=== PATIENT | female | born 1960 | race Caucasian/White ===

== ENCOUNTER → 2019-10-22 | Outpatient (CLI) | payer MEDICARE ==
[2019-10-22 17:44] LABS: BASO % 0.2 % (0.0-1.0); HEMATOCRIT 42.7 % (36.0-47.0); HEMOGLOBIN 13.2 g/dl (12.0-15.5); LYMPH # 1.7 10^3/uL (1.5-5.0); MEAN CORPUSCULAR HEMOGLOBIN 27.2 pg (27.0-33.0); MEAN CORPUSCULAR HGB CONC 30.9 g/dl (32.0-36.5); MONO # 0.2 10^3/uL (0.0-0.8); MONO % 4.1 % (0.0-5.0); NEUTROPHILS # 3.9 10^3/uL (1.5-8.5); NEUTROPHILS % 66.2 % (36.0-66.0); PLATELET COUNT, AUTOMATED 162 10^3/uL (150-450); RED BLOOD COUNT 4.85 10^6/uL (4.00-5.40); WHITE BLOOD COUNT 5.8 10^3/uL (4.0-10.0)
== END ==
LOC: M LAB 17:10
PROVIDERS: ATTEND Psychiatry & Neurology Psychiatry
DX: Z79.899 Other long term (current) drug therapy (principal)

== ENCOUNTER → 2019-11-20 | Outpatient (CLI) | payer MEDICARE ==
[2019-11-20 15:37] LABS: BASO % 0.1 % (0.0-1.0); HEMATOCRIT 45.1 % (36.0-47.0); HEMOGLOBIN 14.2 g/dl (12.0-15.5); LYMPH # 1.9 10^3/uL (1.5-5.0); LYMPH % 28.4 % (24.0-44.0); MEAN CORPUSCULAR HEMOGLOBIN 27.8 pg (27.0-33.0); MEAN CORPUSCULAR HGB CONC 31.5 g/dl (32.0-36.5); MEAN CORPUSCULAR VOLUME 88.3 fl (80.0-96.0); MONO # 0.4 10^3/uL (0.0-0.8); MONO % 5.3 % (0.0-5.0); NEUTROPHILS # 4.5 10^3/uL (1.5-8.5); NEUTROPHILS % 65.9 % (36.0-66.0); PLATELET COUNT, AUTOMATED 158 10^3/uL (150-450); RED BLOOD COUNT 5.11 10^6/uL (4.00-5.40); WHITE BLOOD COUNT 6.8 10^3/uL (4.0-10.0)
== END ==
LOC: M LAB 14:54
PROVIDERS: ATTEND Psychiatry & Neurology Psychiatry
DX: Z79.899 Other long term (current) drug therapy (principal)

== ENCOUNTER → 2019-12-18 | Outpatient (CLI) | payer MEDICAID, MEDICARE ==
[2019-12-18 17:29] LABS: BASO % 0.1 % (0.0-1.0); HEMOGLOBIN 13.9 g/dl (12.0-15.5); LYMPH # 1.9 10^3/uL (1.5-5.0); LYMPH % 28.2 % (24.0-44.0); MEAN CORPUSCULAR HEMOGLOBIN 27.9 pg (27.0-33.0); MEAN CORPUSCULAR HGB CONC 31.6 g/dl (32.0-36.5); MEAN CORPUSCULAR VOLUME 88.4 fl (80.0-96.0); MONO # 0.4 10^3/uL (0.0-0.8); MONO % 5.2 % (0.0-5.0); NEUTROPHILS # 4.5 10^3/uL (1.5-8.5); NEUTROPHILS % 66.1 % (36.0-66.0); PLATELET COUNT, AUTOMATED 184 10^3/uL (150-450); RED BLOOD COUNT 4.98 10^6/uL (4.00-5.40); WHITE BLOOD COUNT 6.8 10^3/uL (4.0-10.0)
== END ==
LOC: M LAB 16:31
PROVIDERS: ATTEND Psychiatry & Neurology Psychiatry
DX: Z51.81 Encounter for therapeutic drug level monitoring (principal); Z79.899 Other long term (current) drug therapy

== ENCOUNTER → 2020-01-25 | Outpatient (CLI) | payer MEDICARE ==
[2020-01-25 17:09] LABS: BASO % 0.1 % (0.0-1.0); HEMATOCRIT 46.1 % (36.0-47.0); HEMOGLOBIN 14.5 g/dl (12.0-15.5); LYMPH # 2.2 10^3/uL (1.5-5.0); LYMPH % 30.2 % (24.0-44.0); MEAN CORPUSCULAR HEMOGLOBIN 27.6 pg (27.0-33.0); MEAN CORPUSCULAR HGB CONC 31.5 g/dl (32.0-36.5); MEAN CORPUSCULAR VOLUME 87.8 fl (80.0-96.0); MONO # 0.4 10^3/uL (0.0-0.8); MONO % 5.3 % (0.0-5.0); NEUTROPHILS # 4.7 10^3/uL (1.5-8.5); PLATELET COUNT, AUTOMATED 190 10^3/uL (150-450); RED BLOOD COUNT 5.25 10^6/uL (4.00-5.40); WHITE BLOOD COUNT 7.3 10^3/uL (4.0-10.0)
== END ==
LOC: M LAB 16:33
PROVIDERS: ATTEND Psychiatry & Neurology Psychiatry
DX: Z79.899 Other long term (current) drug therapy (principal)

== ENCOUNTER → 2020-02-26 | Outpatient (CLI) | payer MEDICARE ==
[2020-02-26 10:53] LABS: BASO % 0.3 % (0.0-1.0); HEMATOCRIT 48.2 % (36.0-47.0); LYMPH # 2.1 10^3/uL (1.5-5.0); LYMPH % 35.6 % (24.0-44.0); MEAN CORPUSCULAR HEMOGLOBIN 27.5 pg (27.0-33.0); MEAN CORPUSCULAR HGB CONC 31.1 g/dl (32.0-36.5); MEAN CORPUSCULAR VOLUME 88.3 fl (80.0-96.0); MONO # 0.3 10^3/uL (0.0-0.8); MONO % 5.5 % (0.0-5.0); NEUTROPHILS # 3.4 10^3/uL (1.5-8.5); NEUTROPHILS % 58.3 % (36.0-66.0); PLATELET COUNT, AUTOMATED 188 10^3/uL (150-450); RED BLOOD COUNT 5.46 10^6/uL (4.00-5.40); WHITE BLOOD COUNT 5.9 10^3/uL (4.0-10.0)
== END ==
LOC: M LAB 09:53
PROVIDERS: ATTEND Psychiatry & Neurology Psychiatry
DX: Z79.899 Other long term (current) drug therapy (principal)

== ENCOUNTER → 2020-03-28 | Outpatient (CLI) | payer MEDICARE ==
[2020-03-28 17:50] LABS: ALBUMIN 3.6 GM/DL (3.2-5.2); ALT/SGPT 26 U/L (12-78); BILIRUBIN,TOTAL 0.4 MG/DL (0.2-1.0); BLOOD UREA NITROGEN 13 MG/DL (7-18); CALCIUM LEVEL 8.8 MG/DL (8.5-10.1); CARBON DIOXIDE LEVEL 26 MEQ/L (21-32); CHLORIDE LEVEL 108 MEQ/L (98-107); CHOLESTEROL LEVEL 186 MG/DL (<200); CHOLESTEROL RISK RATIO 3.444 (<5); CREATININE FOR GFR 0.96 MG/DL (0.55-1.30); FREE T4 0.93 NG/DL (0.76-1.46); GLOMERULAR FILTRATION RATE > 60.0 (>51); GLUCOSE, FASTING 257 MG/DL (70-100); HDL CHOLESTEROL 54 MG/DL (>40); LDL CHOLESTEROL 97 MG/DL (<100); NON-HDL-C 132 MG/DL; POTASSIUM SERUM 3.7 MEQ/L (3.5-5.1); RHEUMATOID FACTOR QUANT < 10.0 IU/ML (<15.0); SODIUM LEVEL 142 MEQ/L (136-145); TOTAL PROTEIN 6.8 GM/DL (6.4-8.2); TRIGLYCERIDES LEVEL 176 MG/DL (<150)
[2020-03-28 17:56] LABS: BASO % 0.2 % (0.0-1.0); HEMATOCRIT 41.4 % (36.0-47.0); LYMPH # 1.8 10^3/uL (1.5-5.0); LYMPH % 29.7 % (24.0-44.0); MEAN CORPUSCULAR HEMOGLOBIN 28.2 pg (27.0-33.0); MEAN CORPUSCULAR HGB CONC 31.4 g/dl (32.0-36.5); MEAN CORPUSCULAR VOLUME 89.8 fl (80.0-96.0); MONO # 0.3 10^3/uL (0.0-0.8); MONO % 4.2 % (0.0-5.0); NEUTROPHILS % 65.6 % (36.0-66.0); PLATELET COUNT, AUTOMATED 159 10^3/uL (150-450); RED BLOOD COUNT 4.61 10^6/uL (4.00-5.40)
[2020-03-30 14:08] LABS: ANTINUCLEAR ANTIBODIES DIRECT Negative (Negative)
== END ==
LOC: M LAB 16:28
PROVIDERS: ATTEND Physician Assistant Medical
DX: R53.83 Other fatigue (principal); I10 Essential (primary) hypertension; E78.2 Mixed hyperlipidemia; M19.90 Unspecified osteoarthritis, unspecified site; Z79.899 Other long term (current) drug therapy

== ENCOUNTER → 2020-03-28 | Outpatient (CLI) | payer MEDICARE ==
[2020-03-28 18:02] LABS: BASO % 0.2 % (0.0-1.0); HEMOGLOBIN 13.4 g/dl (12.0-15.5); LYMPH # 1.9 10^3/uL (1.5-5.0); LYMPH % 30.4 % (24.0-44.0); MEAN CORPUSCULAR HGB CONC 31.2 g/dl (32.0-36.5); MEAN CORPUSCULAR VOLUME 89.8 fl (80.0-96.0); MONO # 0.3 10^3/uL (0.0-0.8); MONO % 4.2 % (0.0-5.0); NEUTROPHILS % 64.7 % (36.0-66.0); PLATELET COUNT, AUTOMATED 178 10^3/uL (150-450); RED BLOOD COUNT 4.79 10^6/uL (4.00-5.40); WHITE BLOOD COUNT 6.2 10^3/uL (4.0-10.0)
== END ==
LOC: M LAB 16:23
PROVIDERS: ATTEND Psychiatry & Neurology Psychiatry
DX: Z79.899 Other long term (current) drug therapy (principal)

== ENCOUNTER → 2020-04-30 | Outpatient (CLI) | payer MEDICARE ==
[2020-04-30 12:12] LABS: BASO % 0.3 % (0.0-1.0); HEMATOCRIT 45.7 % (36.0-47.0); HEMOGLOBIN 13.9 g/dl (12.0-15.5); LYMPH # 1.8 10^3/uL (1.5-5.0); LYMPH % 25.9 % (24.0-44.0); MEAN CORPUSCULAR HEMOGLOBIN 27.1 pg (27.0-33.0); MEAN CORPUSCULAR HGB CONC 30.4 g/dl (32.0-36.5); MEAN CORPUSCULAR VOLUME 89.3 fl (80.0-96.0); MONO # 0.3 10^3/uL (0.0-0.8); MONO % 4.2 % (0.0-5.0); NEUTROPHILS # 4.9 10^3/uL (1.5-8.5); NEUTROPHILS % 68.8 % (36.0-66.0); PLATELET COUNT, AUTOMATED 188 10^3/uL (150-450); RED BLOOD COUNT 5.12 10^6/uL (4.00-5.40); WHITE BLOOD COUNT 7.1 10^3/uL (4.0-10.0)
== END ==
LOC: M LAB 11:47
PROVIDERS: ATTEND Psychiatry & Neurology Psychiatry
DX: Z51.81 Encounter for therapeutic drug level monitoring (principal); Z79.899 Other long term (current) drug therapy

== ENCOUNTER → 2020-05-31 | Outpatient (CLI) | payer MEDICARE ==
[2020-05-31 15:13] LABS: BASO % 0.3 % (0.0-1.0); HEMOGLOBIN 13.6 g/dl (12.0-15.5); LYMPH # 1.8 10^3/uL (1.5-5.0); LYMPH % 27.5 % (24.0-44.0); MEAN CORPUSCULAR HEMOGLOBIN 27.4 pg (27.0-33.0); MEAN CORPUSCULAR HGB CONC 30.9 g/dl (32.0-36.5); MEAN CORPUSCULAR VOLUME 88.7 fl (80.0-96.0); MONO # 0.3 10^3/uL (0.0-0.8); MONO % 5.2 % (0.0-5.0); NEUTROPHILS # 4.4 10^3/uL (1.5-8.5); NEUTROPHILS % 66.5 % (36.0-66.0); PLATELET COUNT, AUTOMATED 194 10^3/uL (150-450); RED BLOOD COUNT 4.96 10^6/uL (4.00-5.40); WHITE BLOOD COUNT 6.6 10^3/uL (4.0-10.0)
== END ==
LOC: M LAB 14:00
PROVIDERS: ATTEND Psychiatry & Neurology Psychiatry
DX: Z51.81 Encounter for therapeutic drug level monitoring (principal); Z79.899 Other long term (current) drug therapy

== ENCOUNTER → 2020-06-27 | Outpatient (CLI) | payer MEDICARE ==
[2020-06-27 14:22] LABS: BASO % 0.3 % (0.0-1.0); HEMATOCRIT 43.1 % (36.0-47.0); HEMOGLOBIN 13.3 g/dl (12.0-15.5); LYMPH # 1.8 10^3/uL (1.5-5.0); LYMPH % 23.9 % (24.0-44.0); MEAN CORPUSCULAR HGB CONC 30.9 g/dl (32.0-36.5); MEAN CORPUSCULAR VOLUME 87.4 fl (80.0-96.0); MONO # 0.4 10^3/uL (0.0-0.8); MONO % 5.3 % (0.0-5.0); NEUTROPHILS # 5.3 10^3/uL (1.5-8.5); NEUTROPHILS % 70.1 % (36.0-66.0); PLATELET COUNT, AUTOMATED 180 10^3/uL (150-450); RED BLOOD COUNT 4.93 10^6/uL (4.00-5.40); WHITE BLOOD COUNT 7.6 10^3/uL (4.0-10.0)
== END ==
LOC: M LAB 13:33
PROVIDERS: ATTEND Psychiatry & Neurology Psychiatry
DX: Z51.81 Encounter for therapeutic drug level monitoring (principal); Z79.899 Other long term (current) drug therapy

== ENCOUNTER → 2020-07-30 | Outpatient (CLI) | payer MEDICARE ==
[2020-07-30 12:26] LABS: BASO % 0.3 % (0.0-1.0); HEMATOCRIT 44.6 % (36.0-47.0); HEMOGLOBIN 13.5 g/dl (12.0-15.5); LYMPH # 1.7 10^3/uL (1.5-5.0); LYMPH % 29.2 % (24.0-44.0); MEAN CORPUSCULAR HEMOGLOBIN 26.8 pg (27.0-33.0); MEAN CORPUSCULAR HGB CONC 30.3 g/dl (32.0-36.5); MEAN CORPUSCULAR VOLUME 88.5 fl (80.0-96.0); MONO # 0.3 10^3/uL (0.0-0.8); MONO % 4.6 % (0.0-5.0); NEUTROPHILS # 3.9 10^3/uL (1.5-8.5); NEUTROPHILS % 65.6 % (36.0-66.0); PLATELET COUNT, AUTOMATED 171 10^3/uL (150-450); RED BLOOD COUNT 5.04 10^6/uL (4.00-5.40); WHITE BLOOD COUNT 5.9 10^3/uL (4.0-10.0)
== END ==
LOC: M LAB 11:39
PROVIDERS: ATTEND Psychiatry & Neurology Psychiatry
DX: Z79.899 Other long term (current) drug therapy (principal)

== ENCOUNTER → 2020-08-27 | Outpatient (CLI) | payer MEDICARE ==
[2020-08-27 12:23] LABS: BASO % 0.1 % (0.0-1.0); HEMATOCRIT 45.1 % (36.0-47.0); HEMOGLOBIN 14.1 g/dl (12.0-15.5); LYMPH # 2.2 10^3/uL (1.5-5.0); LYMPH % 26.1 % (24.0-44.0); MEAN CORPUSCULAR HEMOGLOBIN 27.8 pg (27.0-33.0); MEAN CORPUSCULAR HGB CONC 31.3 g/dl (32.0-36.5); MONO # 0.3 10^3/uL (0.0-0.8); MONO % 4.1 % (2.0-8.0); NEUTROPHILS # 5.8 10^3/uL (1.5-8.5); NEUTROPHILS % 69.2 % (36.0-66.0); PLATELET COUNT, AUTOMATED 192 10^3/uL (150-450); RED BLOOD COUNT 5.07 10^6/uL (4.00-5.40); WHITE BLOOD COUNT 8.3 10^3/uL (4.0-10.0)
== END ==
LOC: M LAB 11:26
PROVIDERS: ATTEND Psychiatry & Neurology Psychiatry
DX: Z51.81 Encounter for therapeutic drug level monitoring (principal); Z79.899 Other long term (current) drug therapy

== ENCOUNTER → 2020-09-23 | Outpatient (CLI) | payer MEDICARE ==
[2020-09-23 17:23] LABS: BASO % 0.3 % (0.0-1.0); HEMATOCRIT 44.4 % (36.0-47.0); HEMOGLOBIN 13.9 g/dl (12.0-15.5); LYMPH # 1.8 10^3/uL (1.5-5.0); MEAN CORPUSCULAR HEMOGLOBIN 27.6 pg (27.0-33.0); MEAN CORPUSCULAR HGB CONC 31.3 g/dl (32.0-36.5); MEAN CORPUSCULAR VOLUME 88.3 fl (80.0-96.0); MONO # 0.4 10^3/uL (0.0-0.8); MONO % 5.9 % (2.0-8.0); NEUTROPHILS # 5.1 10^3/uL (1.5-8.5); NEUTROPHILS % 69.4 % (36.0-66.0); PLATELET COUNT, AUTOMATED 195 10^3/uL (150-450); RED BLOOD COUNT 5.03 10^6/uL (4.00-5.40); WHITE BLOOD COUNT 7.3 10^3/uL (4.0-10.0)
== END ==
LOC: M LAB 16:27
PROVIDERS: ATTEND Psychiatry & Neurology Psychiatry
DX: Z79.899 Other long term (current) drug therapy (principal)

== ENCOUNTER → 2020-10-26 | Outpatient (CLI) | payer MEDICARE ==
[2020-10-26 13:13] LABS: BASO % 0.1 % (0.0-1.0); HEMATOCRIT 45.2 % (36.0-47.0); LYMPH # 1.9 10^3/uL (1.5-5.0); LYMPH % 22.7 % (24.0-44.0); MEAN CORPUSCULAR HEMOGLOBIN 27.3 pg (27.0-33.0); MEAN CORPUSCULAR VOLUME 88.1 fl (80.0-96.0); MONO # 0.4 10^3/uL (0.0-0.8); NEUTROPHILS # 5.8 10^3/uL (1.5-8.5); NEUTROPHILS % 71.3 % (36.0-66.0); PLATELET COUNT, AUTOMATED 210 10^3/uL (150-450); RED BLOOD COUNT 5.13 10^6/uL (4.00-5.40); WHITE BLOOD COUNT 8.1 10^3/uL (4.0-10.0)
[2020-10-26 13:40] LABS: HEMOGLOBIN A1c 5.6 %
[2020-10-26 13:48] LABS: ALBUMIN 4.1 GM/DL (3.2-5.2); ALT/SGPT 20 U/L (12-78); BILIRUBIN,TOTAL 0.3 MG/DL (0.2-1.0); BLOOD UREA NITROGEN 15 MG/DL (7-18); CALCIUM LEVEL 9.6 MG/DL (8.5-10.1); CARBON DIOXIDE LEVEL 31 MEQ/L (21-32); CHLORIDE LEVEL 103 MEQ/L (98-107); CHOLESTEROL LEVEL 229 MG/DL (<200); CHOLESTEROL RISK RATIO 3.754 (<5); CREATININE FOR GFR 0.73 MG/DL (0.55-1.30); GLOMERULAR FILTRATION RATE > 60.0 (>51); GLUCOSE, FASTING 154 MG/DL (70-100); HDL CHOLESTEROL 61 MG/DL (>40); LDL CHOLESTEROL 140 MG/DL (<100); NON-HDL-C 168 MG/DL; POTASSIUM SERUM 3.9 MEQ/L (3.5-5.1); SODIUM LEVEL 140 MEQ/L (136-145); TOTAL PROTEIN 7.3 GM/DL (6.4-8.2); TRIGLYCERIDES LEVEL 140 MG/DL (<150)
== END ==
LOC: M LAB 11:17
PROVIDERS: ATTEND Physician Assistant Medical
DX: R53.83 Other fatigue (principal); I10 Essential (primary) hypertension; E78.2 Mixed hyperlipidemia; E11.9 Type 2 diabetes mellitus without complications

== ENCOUNTER → 2020-10-26 | Outpatient (CLI) | payer MEDICARE ==
[2020-10-26 13:18] LABS: BASO % 0.1 % (0.0-1.0); HEMATOCRIT 45.2 % (36.0-47.0); LYMPH # 1.9 10^3/uL (1.5-5.0); LYMPH % 22.8 % (24.0-44.0); MEAN CORPUSCULAR HEMOGLOBIN 27.5 pg (27.0-33.0); MEAN CORPUSCULAR VOLUME 88.6 fl (80.0-96.0); MONO # 0.4 10^3/uL (0.0-0.8); MONO % 4.6 % (2.0-8.0); NEUTROPHILS # 5.8 10^3/uL (1.5-8.5); NEUTROPHILS % 71.8 % (36.0-66.0); PLATELET COUNT, AUTOMATED 203 10^3/uL (150-450); WHITE BLOOD COUNT 8.1 10^3/uL (4.0-10.0)
== END ==
LOC: M LAB 11:20
PROVIDERS: ATTEND Psychiatry & Neurology Psychiatry
DX: Z79.899 Other long term (current) drug therapy (principal)

== ENCOUNTER → 2020-11-26 | Outpatient (CLI) | payer MEDICARE ==
[2020-11-26 16:02] LABS: BASO % 0.1 % (0.0-1.0); HEMATOCRIT 43.7 % (36.0-47.0); HEMOGLOBIN 13.6 g/dl (12.0-15.5); LYMPH % 28.2 % (24.0-44.0); MEAN CORPUSCULAR HEMOGLOBIN 27.6 pg (27.0-33.0); MEAN CORPUSCULAR HGB CONC 31.1 g/dl (32.0-36.5); MEAN CORPUSCULAR VOLUME 88.6 fl (80.0-96.0); MONO # 0.3 10^3/uL (0.0-0.8); MONO % 4.1 % (2.0-8.0); NEUTROPHILS # 4.8 10^3/uL (1.5-8.5); PLATELET COUNT, AUTOMATED 189 10^3/uL (150-450); RED BLOOD COUNT 4.93 10^6/uL (4.00-5.40); WHITE BLOOD COUNT 7.1 10^3/uL (4.0-10.0)
== END ==
LOC: M LAB 12:01
PROVIDERS: ATTEND Psychiatry & Neurology Psychiatry
DX: Z51.81 Encounter for therapeutic drug level monitoring (principal); Z79.899 Other long term (current) drug therapy

== ENCOUNTER → 2020-12-29 | Outpatient (CLI) | payer MEDICARE ==
[2020-12-29 12:08] LABS: BASO % 0.2 % (0.0-1.0); HEMATOCRIT 43.6 % (36.0-47.0); HEMOGLOBIN 13.5 g/dl (12.0-15.5); LYMPH # 1.8 10^3/uL (1.5-5.0); MEAN CORPUSCULAR HEMOGLOBIN 27.5 pg (27.0-33.0); MEAN CORPUSCULAR VOLUME 88.8 fl (80.0-96.0); MONO # 0.4 10^3/uL (0.0-0.8); MONO % 4.9 % (2.0-8.0); NEUTROPHILS % 72.4 % (36.0-66.0); PLATELET COUNT, AUTOMATED 199 10^3/uL (150-450); RED BLOOD COUNT 4.91 10^6/uL (4.00-5.40); WHITE BLOOD COUNT 8.2 10^3/uL (4.0-10.0)
== END ==
LOC: M LAB 11:14
PROVIDERS: ATTEND Psychiatry & Neurology Psychiatry
DX: Z51.81 Encounter for therapeutic drug level monitoring (principal); Z79.899 Other long term (current) drug therapy

== ENCOUNTER → 2021-08-25 | Outpatient (CLI) | payer MEDICARE | LOC: M RAD 12:23 | PROVIDERS: ATTEND Internal Medicine Pulmonary Disease | DX: R91.8 Other nonspecific abnormal finding of lung field (principal); J43.9 Emphysema, unspecified ==

== ENCOUNTER → 2021-09-29 | Outpatient (CLI) | payer MEDICARE | LOC: M WHC 10:16 | PROVIDERS: ATTEND Physician Assistant | DX: Z12.31 Encounter for screening mammogram for malignant neoplasm of breast (principal); R92.2 Inconclusive mammogram ==

== ENCOUNTER → 2021-10-11 | Outpatient (CLI) | payer MEDICARE | LOC: M WHC 14:38 | PROVIDERS: ATTEND Physician Assistant | DX: N64.89 Other specified disorders of breast (principal) | CPT/HCPCS: 76642; 77065; G0279 ==

== ENCOUNTER → 2021-11-13 | Outpatient (CLI) | payer MEDICARE ==
[~2021-11-13] MED LIST: ALBU83IN; APAP325T4 PO; ATIV1TAB7; CLOZ100T2 PO; CLOZ200T PO; FISH1000 PO; GABA-282; LEXA1TAB2; LINZ145C; LOVA40TA; TREL1AER
== END ==
LOC: M LABSMTC 10:00
PROVIDERS: ATTEND Anesthesiology
DX: Z01.812 Encounter for preprocedural laboratory examination (principal); Z20.822 Contact with and (suspected) exposure to COVID-19

== ENCOUNTER 2021-11-17 09:17 | Day surgery (SDC) | payer MEDICARE ==
[~2021-11-17] VITALS: Ht 167.6 cm; Wt 78.8 kg
[~2021-11-17 09:17] MED LIST changes: +NS 1,000 ML IV ONE
[2021-11-17 11:33] VITALS: BP 103/61
[2021-11-17] MEDS ORDERED: propofoL 200 MG/20 ML VIAL As Ordered ONE (11:52)
[2021-11-17] MEDS ORDERED: LIDOCAINE 2% 100MG/5ML SDV (FOR ANES.) As Ordered ONE (11:52)
== END 2021-11-17 11:33 | disposition home or self-care (01) ==
LOC: M OPP 09:17
PROVIDERS: ATTEND Internal Medicine Gastroenterology
DX: Z12.11 Encounter for screening for malignant neoplasm of colon (principal); Z86.010 Personal history of colon polyps; K63.5 Polyp of colon; K62.1 Rectal polyp; K64.8 Other hemorrhoids; Z79.02 Long term (current) use of antithrombotics/antiplatelets; Z79.899 Other long term (current) drug therapy; Z88.8 Allergy status to other drugs, medicaments and biological substances; Z87.891 Personal history of nicotine dependence; Z80.3 Family history of malignant neoplasm of breast; Z80.1 Family history of malignant neoplasm of trachea, bronchus and lung

== ENCOUNTER → 2022-01-09 | Outpatient (CLI) | payer MEDICARE ==
[~2022-01-09] MED LIST changes: +ALBU2.5V10; -ALBU83IN; -NS 1,000 ML IV ONE
== END ==
LOC: M LABSMTC 09:42
PROVIDERS: ATTEND Anesthesiology
DX: Z01.812 Encounter for preprocedural laboratory examination (principal); Z20.822 Contact with and (suspected) exposure to COVID-19

== ENCOUNTER 2022-01-12 06:46 | Day surgery (SDC) | payer MEDICARE ==
[~2022-01-12] VITALS: Ht 167.6 cm; Wt 80.3 kg
[~2022-01-12 06:46] MED LIST changes: +NS 1,000 ML IV ONE
[2022-01-12] MEDS ORDERED: propofoL 200 MG/20 ML VIAL As Ordered ONE (07:06)
[2022-01-12] MEDS ORDERED: LIDOCAINE 2% INJ 100 MG/5 ML SYRINGE As Ordered ONE (07:07)
[2022-01-12] MEDS ORDERED: PHENYLephrine 500MCG 5ML (100MCG/ML) SYRINGE As Ordered ONE (07:47)
[2022-01-12 08:30] VITALS: BP 154/71
== END 2022-01-12 08:44 | disposition home or self-care (01) ==
LOC: M OPP 06:46
PROVIDERS: ATTEND Internal Medicine Gastroenterology
DX: C44.520 Squamous cell carcinoma of anal skin (principal); K64.8 Other hemorrhoids; Z79.02 Long term (current) use of antithrombotics/antiplatelets; Z79.52 Long term (current) use of systemic steroids; Z79.899 Other long term (current) drug therapy; Z99.81 Dependence on supplemental oxygen; Z88.8 Allergy status to other drugs, medicaments and biological substances
CPT/HCPCS: 45346; 88305; J2370

== ENCOUNTER → 2022-01-19 | Outpatient (CLI) | payer MEDICARE ==
[~2022-01-19] MED LIST changes: +MULTTAB13 PO; -NS 1,000 ML IV ONE
== END ==
LOC: M ONCR 12:57
PROVIDERS: ATTEND General Practice
DX: C21.0 Malignant neoplasm of anus, unspecified (principal); K52.9 Noninfective gastroenteritis and colitis, unspecified; Z80.3 Family history of malignant neoplasm of breast; Z80.1 Family history of malignant neoplasm of trachea, bronchus and lung; Z88.8 Allergy status to other drugs, medicaments and biological substances; Z79.51 Long term (current) use of inhaled steroids; Z79.899 Other long term (current) drug therapy; Z87.891 Personal history of nicotine dependence

== ENCOUNTER 2022-01-24 13:55 | Outpatient (RCR) | payer MEDICARE | END 2022-02-04 | LOC: M ONCR 13:55 | PROVIDERS: ATTEND General Practice | DX: C21.0 Malignant neoplasm of anus, unspecified (principal) ==

== ENCOUNTER → 2022-01-31 | Outpatient (CLI) | payer MEDICARE ==
[~2022-01-31] MED LIST changes: +GASTROGRAFIN SOLUTION 30ML (Q9963) As Ordered ONE; +ISOVUE-370 76% 100ML VIAL As Ordered ONE
== END ==
LOC: M RAD 10:12
PROVIDERS: ATTEND Specialist
DX: C21.8 Malignant neoplasm of overlapping sites of rectum, anus and anal canal (principal); J43.9 Emphysema, unspecified; I70.0 Atherosclerosis of aorta; I25.10 Atherosclerotic heart disease of native coronary artery without angina pectoris; J47.9 Bronchiectasis, uncomplicated; N28.1 Cyst of kidney, acquired; M51.36 Other intervertebral disc degeneration, lumbar region; K44.9 Diaphragmatic hernia without obstruction or gangrene; Z90.49 Acquired absence of other specified parts of digestive tract; R91.8 Other nonspecific abnormal finding of lung field
CPT/HCPCS: 71260; 74177; Q9963; Q9967

== ENCOUNTER → 2022-02-05 | Outpatient (CLI) | payer MEDICARE ==
[~2022-02-05] MED LIST changes: +DICL20GE TP; -GASTROGRAFIN SOLUTION 30ML (Q9963) As Ordered ONE; -ISOVUE-370 76% 100ML VIAL As Ordered ONE
== END ==
LOC: M SOG 14:10
PROVIDERS: ATTEND Orthopaedic Surgery
DX: Z47.89 Encounter for other orthopedic aftercare (principal); M79.604 Pain in right leg

== ENCOUNTER → 2022-02-14 | Outpatient (CLI) | payer MEDICARE | LOC: M LABSMTC 10:01 | PROVIDERS: ATTEND Anesthesiology | DX: Z11.52 Encounter for screening for COVID-19 (principal) ==

== ENCOUNTER → 2022-02-19 | Outpatient (CLI) | payer MEDICARE ==
[~2022-02-19] MED LIST changes: +ACETAMINOPHEN 325 MG TAB As Ordered ONE; +ACETAMINOPHEN TAB 650MG DOSE (2X325MG) PO ONE; +LIDOCAINE 1% MDV 20ML VIAL As Ordered ONE; +MIDAZOLAM INJ 2MG/2ML VIAL (J2250 PER 1MG) As Ordered ONE; +NS 1,000 ML IV SCH; +ONDA-84 PO; +PROC10TA5 PO; +ceFAZolin 2 GM/D5W 50 ML IV BAG (J0690 PER 500MG) As Ordered ONE; +ceFAZolin SOD 2 GM in IV 1 EA IV ONE; +fentaNYL 100 MCG/2 ML INJECTION As Ordered ONE
[2022-02-19 17:15] VITALS: BP 162/82
== END ==
LOC: M IRPRO 11:15
PROVIDERS: ATTEND Specialist
DX: C21.1 Malignant neoplasm of anal canal (principal)
CPT/HCPCS: 36561; 99152; 99153; C1769; C1788; C1887; C1894; J0690; J1642; J1644; J2250; J3010

== ENCOUNTER → 2022-03-07 | Outpatient (RCR) | payer MEDICARE ==
[~2022-03-07] MED LIST changes: -ACETAMINOPHEN 325 MG TAB As Ordered ONE; -ACETAMINOPHEN TAB 650MG DOSE (2X325MG) PO ONE; -LIDOCAINE 1% MDV 20ML VIAL As Ordered ONE; -MIDAZOLAM INJ 2MG/2ML VIAL (J2250 PER 1MG) As Ordered ONE; -NS 1,000 ML IV SCH; -ceFAZolin 2 GM/D5W 50 ML IV BAG (J0690 PER 500MG) As Ordered ONE; -ceFAZolin SOD 2 GM in IV 1 EA IV ONE; -fentaNYL 100 MCG/2 ML INJECTION As Ordered ONE
== END ==
LOC: M ONCR 02-05 11:00
PROVIDERS: ATTEND General Practice
DX: C21.0 Malignant neoplasm of anus, unspecified (principal)

== ENCOUNTER → 2022-03-13 | Outpatient (POV) | payer MEDICARE ==
[~2022-03-13] VITALS: Ht 170.2 cm; Wt 78.6 kg
[~2022-03-13] MED LIST changes: +HYDR25OI TOP; +LACT20EL PO
[2022-03-13 10:45] VITALS: BP 121/73
== END ==
LOC: M IRPOV 10:35
PROVIDERS: ATTEND Radiology Diagnostic Radiology
DX: Z45.2 Encounter for adjustment and management of vascular access device (principal); Z88.8 Allergy status to other drugs, medicaments and biological substances

== ENCOUNTER 2022-03-29 14:13 | Outpatient (RCR) | payer MEDICARE ==
[~2022-03-29 14:13] MED LIST changes: -ALBU2.5V10; +ALBU2.5V10 PO; -ATIV1TAB7; +ATIV1TAB7 PO; -LEXA1TAB2; +LEXA1TAB2 PO; +LIDO5CRE6 TOP; -LINZ145C; +LINZ145C PO; -LOVA40TA; +LOVA40TA PO; +OXYC-517 PO; +POTA-151 PO; -TREL1AER; +TREL1AER PO
[2022-03-30] MEDS ORDERED: MAGICMW SSP (14:19)
[2022-03-30] MEDS ORDERED: LIDO2SOL17 PO (16:21)
[2022-03-30] MEDS ORDERED: [UNRECOGNIZED DRUG - CODE] PO (19:46)
[2022-03-30] MEDS ORDERED: ALBU8.5H PO (19:46)
[2022-03-30] MEDS ORDERED: DOK100TA2 PO ×2 (19:46)
[2022-03-30] MEDS ORDERED: HYDR25OI TOP (19:46)
== END 2022-04-06 ==
LOC: M ONCR 14:13
PROVIDERS: ATTEND General Practice
DX: C21.0 Malignant neoplasm of anus, unspecified (principal); R05.9 Cough, unspecified; R68.83 Chills (without fever)

== ENCOUNTER 2022-03-30 16:24 | Inpatient (IN) | payer MEDICARE ==
[~2022-03-30] VITALS: Ht 167.6 cm; Wt 74.0 kg
[~2022-03-30 16:24] MED LIST changes: -CLOZ100T2 PO; +CLOZ100T5 PO; -CLOZ200T PO; +CLOZ200T4 PO; +LIDO2SOL17 PO; +MAGICMW SSP
[2022-03-30] MEDS ORDERED: SODIUM CHLORIDE 0.9% INJ 10 ML SYR IV PRN (16:55)
[2022-03-30] MEDS ORDERED: POTASSIUM CHLORIDE 10MEQ SR TABLET PO ONE (18:10)
[2022-03-30] MEDS ORDERED: IBUPROFEN 600MG TAB PO ONE (18:10)
[2022-03-30 18:38] LABS: APPEARANCE, URINE MANUAL HAZY (CLEAR); BILIRUBIN, URINE MANUAL NEGATIVE (NEGATIVE); COLOR, URINE MANUAL YELLOW (YELLOW); GLUCOSE, URINE (UA) MANUAL NEGATIVE (NEGATIVE); KETONE, URINE MANUAL NEGATIVE (NEGATIVE); PROTEIN, URINE MANUAL 1+ mg/dL (NEGATIVE); UROBILINOGEN, URINE MANUAL NORMAL (NORMAL)
[2022-03-30 18:39] LABS: BLOOD URINE MANUAL TRACE (NEGATIVE); LEUKOCYTE ESTERASE, URINE MAN POSITIVE (NEGATIVE); NITRITE, URINE MANUAL NEGATIVE (NEGATIVE)
[2022-03-30 19:04] LABS: SQUAMOUS EPITHELIAL CELL URINE SMALL AMOUNT /hpf (SMALL AMT); WBC, URINE TNTC /hpf (0-3)
[2022-03-30 19:06] LABS: BACTERIA, URINE SMALL AMOUNT
[2022-03-30 19:07] LABS: AMORPHOUS SEDIMENT, URINE SMALL AMOUNT (NEGATIVE); MUCUS, URINE MOD AMOUNT (NEGATIVE)
[2022-03-30] MEDS ORDERED: CEFEPIME HCL 2 GM in D5W MINI-BAG PLUS 50 ML IV ONE (19:10)
[2022-03-30] MEDS ORDERED: DOK100TA2 PO ×2 (19:46)
[2022-03-30] MEDS ORDERED: [UNRECOGNIZED DRUG - CODE] PO (19:46)
[2022-03-30] MEDS ORDERED: ALBU8.5H PO (19:46)
[2022-03-30] MEDS ORDERED: HYDR25OI TOP (19:46)
[2022-03-30] MEDS ORDERED: HOME MED LIST COMPLETE! XX SCH (19:50)
[2022-03-30 20:04] LABS: HEMATOCRIT 30.9 % (36.0-47.0); HEMOGLOBIN 9.7 g/dl (12.0-15.5); LYMPH # 0.1 10^3/uL (1.5-5.0); LYMPH % 3.9 % (24.0-44.0); MEAN CORPUSCULAR HEMOGLOBIN 27.9 pg (27.0-33.0); MEAN CORPUSCULAR HGB CONC 31.4 g/dl (32.0-36.5); MEAN CORPUSCULAR VOLUME 88.8 fl (80.0-96.0); MONO % 0.8 % (2.0-8.0); NEUTROPHILS # 2.4 10^3/uL (1.5-8.5); NEUTROPHILS % 93.7 % (36.0-66.0); RED BLOOD COUNT 3.48 10^6/uL (4.00-5.40); WHITE BLOOD COUNT 2.5 10^3/uL (4.0-10.0)
[2022-03-30 20:11] LABS: PLATELET COUNT, AUTOMATED 63 10^3/uL (150-450)
[2022-03-30 20:49] LABS: ALBUMIN 2.5 GM/DL (3.2-5.2); ALT/SGPT 22 U/L (12-78); BILIRUBIN,TOTAL 0.4 MG/DL (0.2-1.0); BLOOD UREA NITROGEN 12 MG/DL (7-18); CALCIUM LEVEL 7.9 MG/DL (8.8-10.2); CARBON DIOXIDE LEVEL 31 MEQ/L (21-32); CHLORIDE LEVEL 106 MEQ/L (98-107); CREATININE FOR GFR 0.55 MG/DL (0.55-1.30); GLOMERULAR FILTRATION RATE > 60.0 (>45); GLUCOSE, FASTING 112 MG/DL (70-100); POTASSIUM SERUM 3.4 MEQ/L (3.5-5.1); SODIUM LEVEL 140 MEQ/L (136-145); TOTAL PROTEIN 5.3 GM/DL (6.4-8.2)
[2022-03-30] MEDS ORDERED: PROCHLORPERAZINE 5MG TAB PO PRN (21:50)
[2022-03-30] MEDS ORDERED: LACTULOSE 20 GM/30 ML SYRUP UD PO PRN (21:50)
[2022-03-30] MEDS ORDERED: ONDANSETRON 4MG TAB PO PRN (21:50)
[2022-03-30] MEDS ORDERED: LORazepam 1 MG TAB PO PRN (21:50)
[2022-03-30] MEDS ORDERED: LIDOCAINE 5% OINT 30GM TUBE TOP PRN (21:50)
[2022-03-30] MEDS ORDERED: ALBUTEROL 90 MCG/ACT 8GM HFA INHALER INH PRN (21:50)
[2022-03-30 22:18] LABS: INR 0.95; PROTHROMBIN TIME 13.1 SECONDS (12.7-14.5)
[2022-03-30 22:23] LABS: D-DIMER QUANT 2678.48 ng/ml (<500)
[2022-03-30 22:56] LABS: C REACTIVE PROTEIN QUANTITATIV 8.72 MG/DL (0.00-0.30); FERRITIN 897 NG/ML (8-252); LDH LACTATE DEHYDROGENASE 199 U/L (84-246)
[2022-03-30] MEDS: AZITHROMYCIN INJ 500 MG, VIAL MATE ADAPTER 1 EACH in NS 250 ML IV SCH (23:08)
[2022-03-31] MEDS ORDERED: UNRESOLVED CLARIFICATION ENTRY XX SCH (00:01)
[2022-03-31] MEDS ORDERED: REMDESIVIR 200 MG in NS 250 ML IV ONE (02:00)
[2022-03-31] MEDS ORDERED: SODIUM CHLORIDE 0.9% INJ 10 ML SYR IV ONE (04:00)
[2022-03-31] MEDS: CEFEPIME HCL 2 GM in D5W MINI-BAG PLUS 50 ML IV SCH ×3 (04:13→20:07)
[2022-03-31] MEDS ORDERED: VANCOMYCIN HCL 750 MG, VIAL MATE ADAPTER 1 EACH in D5W 250 ML IV ONE ×6 (06:00)
[2022-03-31] MEDS ORDERED: NS 1,000 ML IV SCH (07:05)
[2022-03-31 07:15] LABS: HEMATOCRIT 28.1 % (36.0-47.0); HEMOGLOBIN 8.8 g/dl (12.0-15.5); MEAN CORPUSCULAR HEMOGLOBIN 28.4 pg (27.0-33.0); MEAN CORPUSCULAR HGB CONC 31.3 g/dl (32.0-36.5); MEAN CORPUSCULAR VOLUME 90.6 fl (80.0-96.0); WHITE BLOOD COUNT 1.3 10^3/uL (4.0-10.0)
[2022-03-31 07:19] LABS: PLATELET COUNT, AUTOMATED 49 10^3/uL (150-450)
[2022-03-31 08:43] LABS: ALT/SGPT 18 U/L (12-78); BILIRUBIN,TOTAL 0.2 MG/DL (0.2-1.0); BLOOD UREA NITROGEN 8 MG/DL (7-18); CALCIUM LEVEL 6.7 MG/DL (8.8-10.2); CARBON DIOXIDE LEVEL 26 MEQ/L (21-32); CHLORIDE LEVEL 112 MEQ/L (98-107); CREATININE FOR GFR 0.34 MG/DL (0.55-1.30); GLOMERULAR FILTRATION RATE > 60.0 (>45); GLUCOSE, FASTING 162 MG/DL (70-100); POTASSIUM SERUM 3.2 MEQ/L (3.5-5.1); SODIUM LEVEL 142 MEQ/L (136-145); TOTAL PROTEIN 4.4 GM/DL (6.4-8.2)
[2022-03-31] MEDS: PANTOPRAZOLE 40MG TAB (PROTONIX) PO SCH (09:00)
[2022-03-31] MEDS: DOCUSATE SODIUM 100MG CAPSULE PO SCH ×2 (09:00→20:07)
[2022-03-31] MEDS ORDERED: ENOXAPARIN 40MG/0.4ML SYRINGE (J1650 PER 10MG) SC SCH (09:00)
[2022-03-31 09:05] LABS: ALBUMIN 1.9 GM/DL (3.2-5.2); NT-PRO BNP 229 PG/ML (<125)
[2022-03-31 10:00] VITALS: BP 124/80
[2022-03-31] MEDS: ESCITALOPRAM OXALATE 10 MG TAB (LEXAPRO) PO SCH (10:12)
[2022-03-31] MEDS: HYDROCORTISONE 2.5% 20GM OINTMENT TOP SCH ×2 (10:12→20:07)
[2022-03-31] MEDS: dexameTHASONE 4 MG/ML 1ML VIAL (J1100 PER 1MG) IV SCH (10:13)
[2022-03-31] MEDS: LIDOCAINE VISCOUS 2% SOLN 15ML UDC PO SCH ×3 (10:13→20:06)
[2022-03-31] MEDS: NS 0.45% 1,000 ML IV SCH ×2 (10:15→21:46)
[2022-03-31] MEDS ORDERED: POTASSIUM CHLORIDE 10MEQ SR TABLET PO ONE (10:15)
[2022-03-31 12:48] VITALS: BP 118/64
[2022-03-31] MEDS ORDERED: ENTER DRUG NAME HERE (PATIENT'S OWN MED) INH SCH (13:00)
[2022-03-31] MEDS: oxyCODONE 5MG TAB PO PRN (13:28)
[2022-03-31] MEDS: ADVAIR HFA 115/21MCG INHALER INH SCH ×2 (13:39→20:59)
[2022-03-31] MEDS: VANCOMYCIN HCL 1,000 MG, VIAL MATE ADAPTER 1 EACH in D5W 250 ML IV SCH ×2 (14:00→22:24)
[2022-03-31 14:10] VITALS: BP 141/78
[2022-03-31] MEDS: TIOTROPIUM INHALER/CAPSULE (SPIRIVA) INH SCH (14:39)
[2022-03-31] MEDS ORDERED: SODIUM CHLORIDE 0.9% INJ 10 ML SYR IV PRN (15:25)
[2022-03-31] MEDS: NYSTATIN 500,000 U/5 ML SUSP UDC SS SCH ×2 (16:13→20:06)
[2022-03-31] MEDS: LIDOCAINE 5% OINT 30GM TUBE TOP SCH ×2 (16:15→20:08)
[2022-03-31] MEDS: SIMVASTATIN 40 MG TAB PO SCH (20:07)
[2022-03-31 22:00] VITALS: BP 121/72
[2022-03-31] MEDS: REMDESIVIR 100 MG in NS 250 ML IV SCH (23:22)
[2022-04-01] MEDS: AZITHROMYCIN INJ 500 MG, VIAL MATE ADAPTER 1 EACH in NS 250 ML IV SCH (00:51)
[2022-04-01] MEDS: SODIUM CHLORIDE 0.9% INJ 10 ML SYR IV SCH ×2 (00:51→10:17)
[2022-04-01] MEDS: NS 0.45% 1,000 ML IV SCH ×2 (00:58→14:13)
[2022-04-01] MEDS: CEFEPIME HCL 2 GM in D5W MINI-BAG PLUS 50 ML IV SCH ×3 (04:44→20:02)
[2022-04-01 05:41] LABS: HEMATOCRIT 29.1 % (36.0-47.0); LYMPH # 0.1 10^3/uL (1.5-5.0); LYMPH % 9.9 % (24.0-44.0); MEAN CORPUSCULAR HEMOGLOBIN 27.8 pg (27.0-33.0); MEAN CORPUSCULAR HGB CONC 30.9 g/dl (32.0-36.5); MEAN CORPUSCULAR VOLUME 89.8 fl (80.0-96.0); NEUTROPHILS # 0.8 10^3/uL (1.5-8.5); NEUTROPHILS % 87.9 % (36.0-66.0); PLATELET COUNT, AUTOMATED 49 10^3/uL (150-450); RED BLOOD COUNT 3.24 10^6/uL (4.00-5.40)
[2022-04-01 05:42] LABS: WHITE BLOOD COUNT 0.9 10^3/uL (4.0-10.0)
[2022-04-01] MEDS: VANCOMYCIN HCL 1,000 MG, VIAL MATE ADAPTER 1 EACH in D5W 250 ML IV SCH ×3 (05:55→22:07)
[2022-04-01 05:56] VITALS: BP 136/77
[2022-04-01 06:53] LABS: ALBUMIN 2.2 GM/DL (3.2-5.2); ALT/SGPT 19 U/L (12-78); BILIRUBIN,TOTAL 0.2 MG/DL (0.2-1.0); BLOOD UREA NITROGEN 7 MG/DL (7-18); CALCIUM LEVEL 7.4 MG/DL (8.8-10.2); CARBON DIOXIDE LEVEL 29 MEQ/L (21-32); CHLORIDE LEVEL 110 MEQ/L (98-107); CREATININE FOR GFR 0.41 MG/DL (0.55-1.30); GLOMERULAR FILTRATION RATE > 60.0 (>45); GLUCOSE, FASTING 111 MG/DL (70-100); POTASSIUM SERUM 3.8 MEQ/L (3.5-5.1); SODIUM LEVEL 141 MEQ/L (136-145); TOTAL PROTEIN 5.1 GM/DL (6.4-8.2)
[2022-04-01] MEDS: TIOTROPIUM INHALER/CAPSULE (SPIRIVA) INH SCH (08:35)
[2022-04-01] MEDS: ADVAIR HFA 115/21MCG INHALER INH SCH ×2 (08:35→20:28)
[2022-04-01] MEDS: dexameTHASONE 4 MG/ML 1ML VIAL (J1100 PER 1MG) IV SCH (10:13)
[2022-04-01] MEDS: LIDOCAINE VISCOUS 2% SOLN 15ML UDC PO SCH ×3 (10:14→20:04)
[2022-04-01] MEDS: NYSTATIN 500,000 U/5 ML SUSP UDC SS SCH ×3 (10:14→20:04)
[2022-04-01] MEDS: ESCITALOPRAM OXALATE 10 MG TAB (LEXAPRO) PO SCH (10:15)
[2022-04-01] MEDS: DOCUSATE SODIUM 100MG CAPSULE PO SCH ×2 (10:15→20:03)
[2022-04-01] MEDS: PANTOPRAZOLE 40MG TAB (PROTONIX) PO SCH (10:16)
[2022-04-01] MEDS: LIDOCAINE 5% OINT 30GM TUBE TOP SCH ×3 (10:17→20:04)
[2022-04-01] MEDS: HYDROCORTISONE 2.5% 20GM OINTMENT TOP SCH ×2 (10:18→20:04)
[2022-04-01 14:00] VITALS: BP 137/72
[2022-04-01] MEDS: FILGRASTIM 300 MCG/0.5 ML SYRINGE **SC ADMINISTRATION ONLY SC SCH (14:12)
[2022-04-01] MEDS: oxyCODONE 5MG TAB PO PRN (17:18)
[2022-04-01 19:39] VITALS: BP 139/65
[2022-04-01] MEDS: SIMVASTATIN 40 MG TAB PO SCH (20:03)
[2022-04-01] MEDS: REMDESIVIR 100 MG in NS 250 ML IV SCH (23:34)
[2022-04-02] MEDS: SODIUM CHLORIDE 0.9% INJ 10 ML SYR IV SCH ×2 (00:50→09:00)
[2022-04-02] MEDS: AZITHROMYCIN INJ 500 MG, VIAL MATE ADAPTER 1 EACH in NS 250 ML IV SCH (00:50)
[2022-04-02] MEDS: CEFEPIME HCL 2 GM in D5W MINI-BAG PLUS 50 ML IV SCH ×2 (04:33→12:26)
[2022-04-02] MEDS: VANCOMYCIN HCL 1,000 MG, VIAL MATE ADAPTER 1 EACH in D5W 250 ML IV SCH ×2 (05:47→20:18)
[2022-04-02 06:23] LABS: HEMATOCRIT 30.7 % (36.0-47.0); HEMOGLOBIN 9.6 g/dl (12.0-15.5); LYMPH # 0.1 10^3/uL (1.5-5.0); LYMPH % 12.3 % (24.0-44.0); MEAN CORPUSCULAR HEMOGLOBIN 27.9 pg (27.0-33.0); MEAN CORPUSCULAR HGB CONC 31.3 g/dl (32.0-36.5); MEAN CORPUSCULAR VOLUME 89.2 fl (80.0-96.0); NEUTROPHILS % 82.8 % (36.0-66.0); RED BLOOD COUNT 3.44 10^6/uL (4.00-5.40)
[2022-04-02 06:30] LABS: WHITE BLOOD COUNT 0.8 10^3/uL (4.0-10.0)
[2022-04-02 06:31] LABS: NEUTROPHILS # 0.7 10^3/uL (1.5-8.5); PLATELET COUNT, AUTOMATED 41 10^3/uL (150-450)
[2022-04-02 06:45] VITALS: BP 125/57
[2022-04-02 06:57] LABS: ALBUMIN 2.5 GM/DL (3.2-5.2); ALT/SGPT 20 U/L (12-78); BILIRUBIN,TOTAL 0.2 MG/DL (0.2-1.0); BLOOD UREA NITROGEN 8 MG/DL (7-18); CALCIUM LEVEL 7.6 MG/DL (8.8-10.2); CARBON DIOXIDE LEVEL 28 MEQ/L (21-32); CHLORIDE LEVEL 111 MEQ/L (98-107); CREATININE FOR GFR 0.45 MG/DL (0.55-1.30); GLOMERULAR FILTRATION RATE > 60.0 (>45); GLUCOSE, FASTING 112 MG/DL (70-100); POTASSIUM SERUM 3.4 MEQ/L (3.5-5.1); SODIUM LEVEL 143 MEQ/L (136-145); TOTAL PROTEIN 5.4 GM/DL (6.4-8.2)
[2022-04-02] MEDS ORDERED: POTASSIUM CHLORIDE 10MEQ SR TABLET PO ONE (07:55)
[2022-04-02] MEDS: ADVAIR HFA 115/21MCG INHALER INH SCH ×2 (08:00→20:06)
[2022-04-02] MEDS: TIOTROPIUM INHALER/CAPSULE (SPIRIVA) INH SCH (08:00)
[2022-04-02] MEDS: NS 0.45% 1,000 ML IV SCH ×2 (09:18→23:28)
[2022-04-02] MEDS: DOCUSATE SODIUM 100MG CAPSULE PO SCH (09:19)
[2022-04-02] MEDS: NYSTATIN 500,000 U/5 ML SUSP UDC SS SCH ×3 (09:19→20:19)
[2022-04-02] MEDS: ESCITALOPRAM OXALATE 10 MG TAB (LEXAPRO) PO SCH (09:19)
[2022-04-02] MEDS: LIDOCAINE VISCOUS 2% SOLN 15ML UDC PO SCH ×3 (09:19→21:00)
[2022-04-02] MEDS: PANTOPRAZOLE 40MG TAB (PROTONIX) PO SCH (09:20)
[2022-04-02] MEDS: dexameTHASONE 4 MG/ML 1ML VIAL (J1100 PER 1MG) IV SCH (09:20)
[2022-04-02] MEDS: LIDOCAINE 5% OINT 30GM TUBE TOP SCH ×3 (09:21→20:20)
[2022-04-02] MEDS: HYDROCORTISONE 2.5% 20GM OINTMENT TOP SCH ×2 (09:21→20:20)
[2022-04-02] MEDS: FILGRASTIM 300 MCG/0.5 ML SYRINGE **SC ADMINISTRATION ONLY SC SCH (11:19)
[2022-04-02 14:00] VITALS: BP 108/56
[2022-04-02] MEDS: LACTOBACILLUS ACIDOPHILUS CAP (BACID) PO SCH (17:42)
[2022-04-02] MEDS: oxyCODONE 5MG TAB PO PRN (17:46)
[2022-04-02] MEDS: SIMVASTATIN 40 MG TAB PO SCH (20:19)
[2022-04-02 22:00] VITALS: BP 120/65
[2022-04-02] MEDS: REMDESIVIR 100 MG in NS 250 ML IV SCH (23:28)
[2022-04-03] MEDS: SODIUM CHLORIDE 0.9% INJ 10 ML SYR IV SCH ×2 (00:53→08:38)
[2022-04-03] MEDS: LevoFLOXacin 750 MG TABLET PO SCH (05:40)
[2022-04-03 06:00] VITALS: BP 116/65
[2022-04-03 07:28] LABS: HEMATOCRIT 30.4 % (36.0-47.0); HEMOGLOBIN 9.5 g/dl (12.0-15.5); MEAN CORPUSCULAR HGB CONC 31.3 g/dl (32.0-36.5); MEAN CORPUSCULAR VOLUME 89.7 fl (80.0-96.0); RED BLOOD COUNT 3.39 10^6/uL (4.00-5.40); WHITE BLOOD COUNT 1.6 10^3/uL (4.0-10.0)
[2022-04-03 07:31] LABS: PLATELET COUNT, AUTOMATED 25 10^3/uL (150-450)
[2022-04-03] MEDS: TIOTROPIUM INHALER/CAPSULE (SPIRIVA) INH SCH (07:59)
[2022-04-03] MEDS: ADVAIR HFA 115/21MCG INHALER INH SCH ×2 (07:59→20:00)
[2022-04-03 08:15] LABS: ALBUMIN 2.3 GM/DL (3.2-5.2); ALT/SGPT 16 U/L (12-78); BILIRUBIN,TOTAL 0.3 MG/DL (0.2-1.0); BLOOD UREA NITROGEN 10 MG/DL (7-18); CALCIUM LEVEL 7.9 MG/DL (8.8-10.2); CARBON DIOXIDE LEVEL 29 MEQ/L (21-32); CHLORIDE LEVEL 110 MEQ/L (98-107); CREATININE FOR GFR 0.45 MG/DL (0.55-1.30); GLOMERULAR FILTRATION RATE > 60.0 (>45); GLUCOSE, FASTING 83 MG/DL (70-100); POTASSIUM SERUM 3.4 MEQ/L (3.5-5.1); SODIUM LEVEL 142 MEQ/L (136-145); TOTAL PROTEIN 5.4 GM/DL (6.4-8.2)
[2022-04-03 08:30] LABS: LYMPHOCYTES 9 % (16-44); NEUTROPHILS 91 % (28-66)
[2022-04-03 08:35] LABS: TEAR DROP CELLS 1+
[2022-04-03 08:36] LABS: OVALOCYTES 1+; PLATELET ESTIMATE DECREASED (NORMAL)
[2022-04-03] MEDS: dexameTHASONE 4 MG/ML 1ML VIAL (J1100 PER 1MG) IV SCH (08:36)
[2022-04-03] MEDS: LACTOBACILLUS ACIDOPHILUS CAP (BACID) PO SCH ×2 (08:36→17:19)
[2022-04-03] MEDS: LIDOCAINE VISCOUS 2% SOLN 15ML UDC PO SCH ×3 (08:36→21:52)
[2022-04-03] MEDS: PANTOPRAZOLE 40MG TAB (PROTONIX) PO SCH (08:36)
[2022-04-03] MEDS: ESCITALOPRAM OXALATE 10 MG TAB (LEXAPRO) PO SCH (08:36)
[2022-04-03] MEDS: NYSTATIN 500,000 U/5 ML SUSP UDC SS SCH ×3 (08:36→21:52)
[2022-04-03 08:37] LABS: HYPERSEGMENTED POLYS 1+
[2022-04-03] MEDS: VANCOMYCIN HCL 1,000 MG, VIAL MATE ADAPTER 1 EACH in D5W 250 ML IV SCH ×2 (08:38→21:51)
[2022-04-03] MEDS: HYDROCORTISONE 2.5% 20GM OINTMENT TOP SCH ×2 (08:40→21:52)
[2022-04-03] MEDS: LIDOCAINE 5% OINT 30GM TUBE TOP SCH ×3 (08:40→21:27)
[2022-04-03] MEDS: FILGRASTIM 300 MCG/0.5 ML SYRINGE **SC ADMINISTRATION ONLY SC SCH (11:20)
[2022-04-03] MEDS: NS 0.45% 1,000 ML IV SCH (11:20)
[2022-04-03 14:00] VITALS: BP 113/65
[2022-04-03] MEDS ORDERED: POTASSIUM CHLORIDE 10MEQ SR TABLET PO ONE (20:15)
[2022-04-03] MEDS: oxyCODONE 5MG TAB PO PRN (21:26)
[2022-04-03] MEDS: SIMVASTATIN 40 MG TAB PO SCH (21:52)
[2022-04-03 22:00] VITALS: BP 118/65
[2022-04-03] MEDS: REMDESIVIR 100 MG in NS 250 ML IV SCH (23:28)
[2022-04-04] MEDS: SODIUM CHLORIDE 0.9% INJ 10 ML SYR IV SCH ×2 (00:48→10:29)
[2022-04-04] MEDS: LevoFLOXacin 750 MG TABLET PO SCH (05:21)
[2022-04-04] MEDS: oxyCODONE 5MG TAB PO PRN ×3 (05:22→20:25)
[2022-04-04 05:26] VITALS: BP 113/66
[2022-04-04] MEDS: ADVAIR HFA 115/21MCG INHALER INH SCH ×2 (06:52→20:22)
[2022-04-04] MEDS: TIOTROPIUM INHALER/CAPSULE (SPIRIVA) INH SCH (06:52)
[2022-04-04 07:27] LABS: HEMATOCRIT 30.4 % (36.0-47.0); HEMOGLOBIN 9.5 g/dl (12.0-15.5); LYMPH # 0.1 10^3/uL (1.5-5.0); LYMPH % 28.9 % (24.0-44.0); MEAN CORPUSCULAR HEMOGLOBIN 27.8 pg (27.0-33.0); MEAN CORPUSCULAR HGB CONC 31.3 g/dl (32.0-36.5); MEAN CORPUSCULAR VOLUME 88.9 fl (80.0-96.0); NEUTROPHILS % 68.9 % (36.0-66.0); RED BLOOD COUNT 3.42 10^6/uL (4.00-5.40)
[2022-04-04 07:35] LABS: NEUTROPHILS # 0.3 10^3/uL (1.5-8.5); PLATELET COUNT, AUTOMATED 18 10^3/uL (150-450); WHITE BLOOD COUNT 0.5 10^3/uL (4.0-10.0)
[2022-04-04 07:56] LABS: BLOOD UREA NITROGEN 12 MG/DL (7-18); CARBON DIOXIDE LEVEL 27 MEQ/L (21-32); CHLORIDE LEVEL 110 MEQ/L (98-107); CREATININE FOR GFR 0.36 MG/DL (0.55-1.30); GLOMERULAR FILTRATION RATE > 60.0 (>45); GLUCOSE, FASTING 90 MG/DL (70-100); POTASSIUM SERUM 3.3 MEQ/L (3.5-5.1); SODIUM LEVEL 141 MEQ/L (136-145)
[2022-04-04] MEDS: LACTOBACILLUS ACIDOPHILUS CAP (BACID) PO SCH ×2 (08:00→17:12)
[2022-04-04 09:12] LABS: VANCOMYCIN LEVEL TROUGH 15.7 UG/ML (10.0-20.0)
[2022-04-04] MEDS: HYDROCORTISONE 2.5% 20GM OINTMENT TOP SCH ×2 (10:28→20:07)
[2022-04-04] MEDS: LIDOCAINE VISCOUS 2% SOLN 15ML UDC PO SCH ×3 (10:28→20:06)
[2022-04-04] MEDS: VANCOMYCIN HCL 1,000 MG, VIAL MATE ADAPTER 1 EACH in D5W 250 ML IV SCH ×2 (10:28→20:05)
[2022-04-04] MEDS: LIDOCAINE 5% OINT 30GM TUBE TOP SCH ×3 (10:29→20:07)
[2022-04-04] MEDS: NYSTATIN 500,000 U/5 ML SUSP UDC SS SCH ×3 (10:29→20:06)
[2022-04-04] MEDS: dexameTHASONE 4 MG/ML 1ML VIAL (J1100 PER 1MG) IV SCH (10:29)
[2022-04-04] MEDS: PANTOPRAZOLE 40MG TAB (PROTONIX) PO SCH (10:30)
[2022-04-04] MEDS: ESCITALOPRAM OXALATE 10 MG TAB (LEXAPRO) PO SCH (10:30)
[2022-04-04] MEDS: FILGRASTIM 300 MCG/0.5 ML SYRINGE **SC ADMINISTRATION ONLY SC SCH (11:49)
[2022-04-04 14:00] VITALS: BP 116/66
[2022-04-04] MEDS ORDERED: POTASSIUM CHLORIDE 10MEQ SR TABLET PO ONE (17:45)
[2022-04-04] MEDS: SIMVASTATIN 40 MG TAB PO SCH (20:06)
[2022-04-04 22:00] VITALS: BP 114/64
[2022-04-05] MEDS: LevoFLOXacin 750 MG TABLET PO SCH (05:29)
[2022-04-05 06:00] VITALS: BP 103/58
[2022-04-05 06:24] LABS: HEMATOCRIT 30.2 % (36.0-47.0); HEMOGLOBIN 9.5 g/dl (12.0-15.5); LYMPH # 0.1 10^3/uL (1.5-5.0); LYMPH % 58.8 % (24.0-44.0); MEAN CORPUSCULAR HEMOGLOBIN 27.9 pg (27.0-33.0); MEAN CORPUSCULAR HGB CONC 31.5 g/dl (32.0-36.5); MEAN CORPUSCULAR VOLUME 88.8 fl (80.0-96.0); MONO % 5.9 % (2.0-8.0); NEUTROPHILS % 35.3 % (36.0-66.0)
[2022-04-05 06:25] LABS: NEUTROPHILS # 0.1 10^3/uL (1.5-8.5); PLATELET COUNT, AUTOMATED 11 10^3/uL (150-450); WHITE BLOOD COUNT 0.2 10^3/uL (4.0-10.0)
[2022-04-05 07:00] LABS: BLOOD UREA NITROGEN 15 MG/DL (7-18); CARBON DIOXIDE LEVEL 26 MEQ/L (21-32); CHLORIDE LEVEL 110 MEQ/L (98-107); CREATININE FOR GFR 0.32 MG/DL (0.55-1.30); GLOMERULAR FILTRATION RATE > 60.0 (>45); GLUCOSE, FASTING 95 MG/DL (70-100); SODIUM LEVEL 140 MEQ/L (136-145)
[2022-04-05] MEDS: TIOTROPIUM INHALER/CAPSULE (SPIRIVA) INH SCH (08:17)
[2022-04-05] MEDS: ADVAIR HFA 115/21MCG INHALER INH SCH ×2 (08:18→20:00)
[2022-04-05] MEDS: HYDROCORTISONE 2.5% 20GM OINTMENT TOP SCH ×2 (09:59→21:13)
[2022-04-05] MEDS: VANCOMYCIN HCL 1,000 MG, VIAL MATE ADAPTER 1 EACH in D5W 250 ML IV SCH ×2 (09:59→20:32)
[2022-04-05] MEDS: LIDOCAINE 5% OINT 30GM TUBE TOP SCH ×3 (09:59→21:13)
[2022-04-05] MEDS: dexameTHASONE 4 MG/ML 1ML VIAL (J1100 PER 1MG) IV SCH (10:00)
[2022-04-05] MEDS: ESCITALOPRAM OXALATE 10 MG TAB (LEXAPRO) PO SCH (10:00)
[2022-04-05] MEDS: LACTOBACILLUS ACIDOPHILUS CAP (BACID) PO SCH ×2 (10:00→17:12)
[2022-04-05] MEDS: NYSTATIN 500,000 U/5 ML SUSP UDC SS SCH ×3 (10:00→21:13)
[2022-04-05] MEDS: oxyCODONE 5MG TAB PO PRN ×3 (10:00→22:48)
[2022-04-05] MEDS: PANTOPRAZOLE 40MG TAB (PROTONIX) PO SCH (10:01)
[2022-04-05] MEDS: LIDOCAINE VISCOUS 2% SOLN 15ML UDC PO SCH ×3 (10:01→21:13)
[2022-04-05] MEDS: SODIUM CHLORIDE 0.9% INJ 10 ML SYR IV SCH (10:02)
[2022-04-05] MEDS: FILGRASTIM 300 MCG/0.5 ML SYRINGE **SC ADMINISTRATION ONLY SC SCH (12:16)
[2022-04-05 14:00] VITALS: BP 129/70
[2022-04-05] MEDS: NYSTATIN 100,000 UNITS/GM TOPICAL PWD 15 GM TOP SCH (17:24)
[2022-04-05] MEDS: SIMVASTATIN 40 MG TAB PO SCH (21:13)
[2022-04-05 22:00] VITALS: BP 123/70
[2022-04-06] MEDS: ACETAMINOPHEN 325 MG TAB PO PRN ×2 (01:36→17:52)
[2022-04-06 06:00] VITALS: BP 111/81
[2022-04-06] MEDS: oxyCODONE 5MG TAB PO PRN ×3 (06:44→20:22)
[2022-04-06 07:33] LABS: HEMATOCRIT 32.6 % (36.0-47.0); HEMOGLOBIN 10.4 g/dl (12.0-15.5); LYMPH # 0.1 10^3/uL (1.5-5.0); LYMPH % 82.4 % (24.0-44.0); MEAN CORPUSCULAR HEMOGLOBIN 27.9 pg (27.0-33.0); MEAN CORPUSCULAR HGB CONC 31.9 g/dl (32.0-36.5); MEAN CORPUSCULAR VOLUME 87.4 fl (80.0-96.0); MONO % 11.8 % (2.0-8.0); RED BLOOD COUNT 3.73 10^6/uL (4.00-5.40)
[2022-04-06 07:38] LABS: PLATELET COUNT, AUTOMATED 8 10^3/uL (150-450); WHITE BLOOD COUNT 0.2 10^3/uL (4.0-10.0)
[2022-04-06 07:51] LABS: BLOOD UREA NITROGEN 14 MG/DL (7-18); CALCIUM LEVEL 8.2 MG/DL (8.8-10.2); CARBON DIOXIDE LEVEL 24 MEQ/L (21-32); CHLORIDE LEVEL 108 MEQ/L (98-107); GLOMERULAR FILTRATION RATE > 60.0 (>45); GLUCOSE, FASTING 110 MG/DL (70-100); POTASSIUM SERUM 3.6 MEQ/L (3.5-5.1); SODIUM LEVEL 140 MEQ/L (136-145)
[2022-04-06] MEDS: ADVAIR HFA 115/21MCG INHALER INH SCH ×2 (07:58→20:42)
[2022-04-06] MEDS: TIOTROPIUM INHALER/CAPSULE (SPIRIVA) INH SCH (07:58)
[2022-04-06] MEDS: LACTOBACILLUS ACIDOPHILUS CAP (BACID) PO SCH ×2 (08:30→16:42)
[2022-04-06] MEDS: VANCOMYCIN HCL 1,000 MG, VIAL MATE ADAPTER 1 EACH in D5W 250 ML IV SCH ×2 (08:30→20:19)
[2022-04-06] MEDS: PANTOPRAZOLE 40MG TAB (PROTONIX) PO SCH (08:30)
[2022-04-06] MEDS: NYSTATIN 500,000 U/5 ML SUSP UDC SS SCH ×3 (08:30→20:23)
[2022-04-06] MEDS: ESCITALOPRAM OXALATE 10 MG TAB (LEXAPRO) PO SCH (08:30)
[2022-04-06] MEDS: LIDOCAINE VISCOUS 2% SOLN 15ML UDC PO SCH ×3 (08:30→20:24)
[2022-04-06] MEDS: LIDOCAINE 5% OINT 30GM TUBE TOP SCH (08:32)
[2022-04-06] MEDS: HYDROCORTISONE 2.5% 20GM OINTMENT TOP SCH (08:33)
[2022-04-06] MEDS: SODIUM CHLORIDE 0.9% INJ 10 ML SYR IV SCH (08:34)
[2022-04-06 09:33] LABS: VANCOMYCIN RANDOM 11.1 UG/ML
[2022-04-06] MEDS: FILGRASTIM 300 MCG/0.5 ML SYRINGE **SC ADMINISTRATION ONLY SC SCH (10:15)
[2022-04-06] MEDS: LevoFLOXacin 750 MG TABLET PO SCH (12:27)
[2022-04-06] MEDS: NYSTATIN 100,000 UNITS/GM TOPICAL PWD 15 GM TOP SCH (12:28)
[2022-04-06 14:00] VITALS: BP 103/56
[2022-04-06] MEDS: NS 1,000 ML IV SCH (14:40)
[2022-04-06 16:27] VITALS: BP 102/55
[2022-04-06 18:11] VITALS: BP 136/65
[2022-04-06] MEDS: SIMVASTATIN 40 MG TAB PO SCH (20:20)
[2022-04-06 20:30] VITALS: BP 123/64
[2022-04-07] VITALS (7 sets, daily range): BP systolic 96–126; BP diastolic 44–63
[2022-04-07] MEDS: LevoFLOXacin 750 MG TABLET PO SCH (05:27)
[2022-04-07 07:18] LABS: HEMATOCRIT 28.1 % (36.0-47.0); HEMOGLOBIN 9.1 g/dl (12.0-15.5); LYMPH # 0.1 10^3/uL (1.5-5.0); LYMPH % 42.9 % (24.0-44.0); MEAN CORPUSCULAR HEMOGLOBIN 27.9 pg (27.0-33.0); MEAN CORPUSCULAR HGB CONC 32.4 g/dl (32.0-36.5); MEAN CORPUSCULAR VOLUME 86.2 fl (80.0-96.0); MONO % 14.3 % (2.0-8.0); NEUTROPHILS % 42.8 % (36.0-66.0); RED BLOOD COUNT 3.26 10^6/uL (4.00-5.40)
[2022-04-07 07:27] LABS: NEUTROPHILS # 0.1 10^3/uL (1.5-8.5); PLATELET COUNT, AUTOMATED 8 10^3/uL (150-450); WHITE BLOOD COUNT 0.2 10^3/uL (4.0-10.0)
[2022-04-07] MEDS: ADVAIR HFA 115/21MCG INHALER INH SCH ×2 (07:34→20:00)
[2022-04-07] MEDS: TIOTROPIUM INHALER/CAPSULE (SPIRIVA) INH SCH (07:34)
[2022-04-07 07:50] LABS: BLOOD UREA NITROGEN 13 MG/DL (7-18); CALCIUM LEVEL 8.1 MG/DL (8.8-10.2); CARBON DIOXIDE LEVEL 26 MEQ/L (21-32); CHLORIDE LEVEL 104 MEQ/L (98-107); CREATININE FOR GFR 0.56 MG/DL (0.55-1.30); GLOMERULAR FILTRATION RATE > 60.0 (>45); GLUCOSE, FASTING 137 MG/DL (70-100); POTASSIUM SERUM 3.1 MEQ/L (3.5-5.1); SODIUM LEVEL 135 MEQ/L (136-145); VANCOMYCIN LEVEL TROUGH 11.5 UG/ML (10.0-20.0)
[2022-04-07] MEDS: LACTOBACILLUS ACIDOPHILUS CAP (BACID) PO SCH ×2 (08:20→17:48)
[2022-04-07] MEDS: VANCOMYCIN HCL 750 MG, VIAL MATE ADAPTER 1 EACH in D5W 250 ML IV SCH ×2 (08:20→19:57)
[2022-04-07] MEDS: NYSTATIN 500,000 U/5 ML SUSP UDC SS SCH (09:00)
[2022-04-07] MEDS: SODIUM CHLORIDE 0.9% INJ 10 ML SYR IV SCH (09:00)
[2022-04-07] MEDS ORDERED: POTASSIUM CHLORIDE 10MEQ SR TABLET PO ONE (09:00)
[2022-04-07] MEDS: FILGRASTIM 300 MCG/0.5 ML SYRINGE **SC ADMINISTRATION ONLY SC SCH (10:37)
[2022-04-07] MEDS: ESCITALOPRAM OXALATE 10 MG TAB (LEXAPRO) PO SCH (10:37)
[2022-04-07] MEDS: PANTOPRAZOLE 40MG TAB (PROTONIX) PO SCH (10:37)
[2022-04-07] MEDS: LIDOCAINE VISCOUS 2% SOLN 15ML UDC PO SCH ×3 (10:38→21:33)
[2022-04-07] MEDS: VANCOMYCIN HCL 500 MG in D5W MINI-BAG PLUS 100 ML IV SCH ×2 (12:11→21:34)
[2022-04-07] MEDS: KCL 10MEQ/100ML SWI (KRUN) 10 MEQ in IV 1 EA IV SCH ×3 (12:13→14:36)
[2022-04-07] MEDS: NS 1,000 ML IV SCH (12:14)
[2022-04-07] MEDS: ACETAMINOPHEN 325 MG TAB PO PRN (15:52)
[2022-04-07] MEDS: oxyCODONE 5MG TAB PO PRN (17:48)
[2022-04-07] MEDS: SIMVASTATIN 40 MG TAB PO SCH (21:33)
[2022-04-08] MEDS: oxyCODONE 5MG TAB PO PRN ×3 (04:57→17:41)
[2022-04-08] MEDS: LevoFLOXacin 750 MG TABLET PO SCH (05:00)
[2022-04-08 06:00] VITALS: BP 123/62
[2022-04-08 07:16] LABS: HEMATOCRIT 26.8 % (36.0-47.0); HEMOGLOBIN 8.5 g/dl (12.0-15.5); LYMPH # 0.1 10^3/uL (1.5-5.0); MEAN CORPUSCULAR HEMOGLOBIN 28.1 pg (27.0-33.0); MEAN CORPUSCULAR HGB CONC 31.7 g/dl (32.0-36.5); MEAN CORPUSCULAR VOLUME 88.4 fl (80.0-96.0); RED BLOOD COUNT 3.03 10^6/uL (4.00-5.40)
[2022-04-08] MEDS: ADVAIR HFA 115/21MCG INHALER INH SCH ×2 (07:18→19:48)
[2022-04-08] MEDS: TIOTROPIUM INHALER/CAPSULE (SPIRIVA) INH SCH (07:18)
[2022-04-08 07:22] LABS: NEUTROPHILS # 0.3 10^3/uL (1.5-8.5); WHITE BLOOD COUNT 0.5 10^3/uL (4.0-10.0)
[2022-04-08 07:23] LABS: PLATELET COUNT, AUTOMATED 18 10^3/uL (150-450)
[2022-04-08 07:50] LABS: BLOOD UREA NITROGEN 12 MG/DL (7-18); CALCIUM LEVEL 8.2 MG/DL (8.8-10.2); CARBON DIOXIDE LEVEL 30 MEQ/L (21-32); CHLORIDE LEVEL 106 MEQ/L (98-107); CREATININE FOR GFR 0.58 MG/DL (0.55-1.30); GLOMERULAR FILTRATION RATE > 60.0 (>45); GLUCOSE, FASTING 96 MG/DL (70-100); POTASSIUM SERUM 3.9 MEQ/L (3.5-5.1); SODIUM LEVEL 139 MEQ/L (136-145)
[2022-04-08] MEDS: VANCOMYCIN HCL 750 MG, VIAL MATE ADAPTER 1 EACH in D5W 250 ML IV SCH ×2 (08:21→21:06)
[2022-04-08] MEDS: LACTOBACILLUS ACIDOPHILUS CAP (BACID) PO SCH ×2 (08:21→17:40)
[2022-04-08] MEDS: SODIUM CHLORIDE 0.9% INJ 10 ML SYR IV SCH (08:22)
[2022-04-08] MEDS: ESCITALOPRAM OXALATE 10 MG TAB (LEXAPRO) PO SCH (08:22)
[2022-04-08] MEDS: PANTOPRAZOLE 40MG TAB (PROTONIX) PO SCH (08:22)
[2022-04-08] MEDS: LIDOCAINE VISCOUS 2% SOLN 15ML UDC PO SCH ×3 (08:22→21:10)
[2022-04-08] MEDS: FILGRASTIM 300 MCG/0.5 ML SYRINGE **SC ADMINISTRATION ONLY SC SCH (09:42)
[2022-04-08] MEDS: VANCOMYCIN HCL 500 MG in D5W MINI-BAG PLUS 100 ML IV SCH ×2 (09:42→22:16)
[2022-04-08] MEDS: NS 1,000 ML IV SCH (11:41)
[2022-04-08] MEDS: ACETAMINOPHEN 325 MG TAB PO PRN ×2 (13:22→21:10)
[2022-04-08] MEDS: LEVALBUTEROL 1.25 MG/0.5 ML CONCENTRATE NEB INH SCH ×2 (14:00→19:47)
[2022-04-08 16:00] VITALS: BP 104/56
[2022-04-08] MEDS: SIMVASTATIN 40 MG TAB PO SCH (21:10)
[2022-04-08 22:00] VITALS: BP 105/56
[2022-04-09] MEDS: oxyCODONE 5MG TAB PO PRN ×4 (00:12→21:12)
[2022-04-09] MEDS: LevoFLOXacin 750 MG TABLET PO SCH (05:42)
[2022-04-09 05:45] VITALS: BP 112/62
[2022-04-09 06:10] LABS: BASO % 1.1 % (0.0-1.0); HEMATOCRIT 27.5 % (36.0-47.0); HEMOGLOBIN 8.6 g/dl (12.0-15.5); LYMPH # 0.1 10^3/uL (1.5-5.0); LYMPH % 15.9 % (24.0-44.0); MEAN CORPUSCULAR HEMOGLOBIN 27.6 pg (27.0-33.0); MEAN CORPUSCULAR HGB CONC 31.3 g/dl (32.0-36.5); MEAN CORPUSCULAR VOLUME 88.1 fl (80.0-96.0); MONO # 0.1 10^3/uL (0.0-0.8); NEUTROPHILS % 64.8 % (36.0-66.0); RED BLOOD COUNT 3.12 10^6/uL (4.00-5.40)
[2022-04-09 06:13] LABS: WHITE BLOOD COUNT 0.9 10^3/uL (4.0-10.0)
[2022-04-09 06:14] LABS: NEUTROPHILS # 0.6 10^3/uL (1.5-8.5); PLATELET COUNT, AUTOMATED 19 10^3/uL (150-450)
[2022-04-09 06:44] LABS: BLOOD UREA NITROGEN 8 MG/DL (7-18); CARBON DIOXIDE LEVEL 28 MEQ/L (21-32); CHLORIDE LEVEL 107 MEQ/L (98-107); CREATININE FOR GFR 0.56 MG/DL (0.55-1.30); GLOMERULAR FILTRATION RATE > 60.0 (>45); GLUCOSE, FASTING 98 MG/DL (70-100); POTASSIUM SERUM 3.3 MEQ/L (3.5-5.1); SODIUM LEVEL 140 MEQ/L (136-145)
[2022-04-09] MEDS ORDERED: POTASSIUM CHLORIDE 10MEQ SR TABLET PO ONE (07:30)
[2022-04-09] MEDS: TIOTROPIUM INHALER/CAPSULE (SPIRIVA) INH SCH (07:54)
[2022-04-09] MEDS: ADVAIR HFA 115/21MCG INHALER INH SCH ×2 (07:54→20:00)
[2022-04-09] MEDS: LEVALBUTEROL 1.25 MG/0.5 ML CONCENTRATE NEB INH SCH ×3 (07:54→20:00)
[2022-04-09] MEDS: VANCOMYCIN HCL 750 MG, VIAL MATE ADAPTER 1 EACH in D5W 250 ML IV SCH ×2 (08:14→21:11)
[2022-04-09] MEDS: LACTOBACILLUS ACIDOPHILUS CAP (BACID) PO SCH ×2 (08:14→17:27)
[2022-04-09] MEDS: ESCITALOPRAM OXALATE 10 MG TAB (LEXAPRO) PO SCH (08:15)
[2022-04-09] MEDS: PANTOPRAZOLE 40MG TAB (PROTONIX) PO SCH (08:15)
[2022-04-09] MEDS: FILGRASTIM 300 MCG/0.5 ML SYRINGE **SC ADMINISTRATION ONLY SC SCH (09:33)
[2022-04-09] MEDS: LIDOCAINE VISCOUS 2% SOLN 15ML UDC PO SCH ×3 (09:33→21:13)
[2022-04-09] MEDS: VANCOMYCIN HCL 500 MG in D5W MINI-BAG PLUS 100 ML IV SCH ×2 (09:34→22:48)
[2022-04-09] MEDS: SODIUM CHLORIDE 0.9% INJ 10 ML SYR IV SCH (10:46)
[2022-04-09 13:59] VITALS: BP 100/59
[2022-04-09 20:00] VITALS: BP 91/53
[2022-04-09] MEDS: SIMVASTATIN 40 MG TAB PO SCH (21:12)
[2022-04-10 00:45] VITALS: BP 91/53
[2022-04-10] MEDS: oxyCODONE 5MG TAB PO PRN ×3 (05:40→23:37)
[2022-04-10] MEDS: LevoFLOXacin 750 MG TABLET PO SCH (05:40)
[2022-04-10 06:05] LABS: HEMOGLOBIN 8.9 g/dl (12.0-15.5); MEAN CORPUSCULAR HEMOGLOBIN 27.9 pg (27.0-33.0); MEAN CORPUSCULAR HGB CONC 31.8 g/dl (32.0-36.5); MEAN CORPUSCULAR VOLUME 87.8 fl (80.0-96.0); RED BLOOD COUNT 3.19 10^6/uL (4.00-5.40); WHITE BLOOD COUNT 2.5 10^3/uL (4.0-10.0)
[2022-04-10 06:09] LABS: PLATELET COUNT, AUTOMATED 24 10^3/uL (150-450)
[2022-04-10 06:19] VITALS: BP 100/52
[2022-04-10 06:38] LABS: BLOOD UREA NITROGEN 8 MG/DL (7-18); CALCIUM LEVEL 8.1 MG/DL (8.8-10.2); CARBON DIOXIDE LEVEL 30 MEQ/L (21-32); CHLORIDE LEVEL 105 MEQ/L (98-107); CREATININE FOR GFR 0.58 MG/DL (0.55-1.30); GLOMERULAR FILTRATION RATE > 60.0 (>45); GLUCOSE, FASTING 98 MG/DL (70-100); POTASSIUM SERUM 3.4 MEQ/L (3.5-5.1); SODIUM LEVEL 139 MEQ/L (136-145)
[2022-04-10] MEDS: ADVAIR HFA 115/21MCG INHALER INH SCH ×2 (07:53→20:28)
[2022-04-10] MEDS: TIOTROPIUM INHALER/CAPSULE (SPIRIVA) INH SCH (07:53)
[2022-04-10] MEDS: LEVALBUTEROL 1.25 MG/0.5 ML CONCENTRATE NEB INH SCH (07:54)
[2022-04-10 08:13] LABS: ATYPICAL LYMPH 1 % (0-5); LYMPHOCYTES 14 % (16-44); METAMYELOCYTES 2 % (0-0); MONOCYTES 3 % (0-5); MYELOCYTES 2 % (0-0); NEUTROPHILS 71 % (28-66); NUCLEATED RED BLOOD CELL 1 % (0-0)
[2022-04-10 08:15] LABS: TOXIC GRANULATION 2+
[2022-04-10 08:16] LABS: PLATELET ESTIMATE MARKED DECREASE (NORMAL)
[2022-04-10] MEDS: VANCOMYCIN HCL 750 MG, VIAL MATE ADAPTER 1 EACH in D5W 250 ML IV SCH ×2 (08:56→20:40)
[2022-04-10] MEDS: LACTOBACILLUS ACIDOPHILUS CAP (BACID) PO SCH ×2 (09:00→17:02)
[2022-04-10] MEDS: PANTOPRAZOLE 40MG TAB (PROTONIX) PO SCH (09:01)
[2022-04-10] MEDS: LIDOCAINE VISCOUS 2% SOLN 15ML UDC PO SCH ×3 (09:01→22:05)
[2022-04-10] MEDS: ESCITALOPRAM OXALATE 10 MG TAB (LEXAPRO) PO SCH (09:01)
[2022-04-10] MEDS: VANCOMYCIN HCL 500 MG in D5W MINI-BAG PLUS 100 ML IV SCH ×2 (10:28→22:05)
[2022-04-10] MEDS: FILGRASTIM 300 MCG/0.5 ML SYRINGE **SC ADMINISTRATION ONLY SC SCH (10:30)
[2022-04-10] MEDS: SODIUM CHLORIDE 0.9% INJ 10 ML SYR IV SCH (10:31)
[2022-04-10] MEDS: LEVALBUTEROL HFA 45MCG/ACT 15 GM INHALER INH SCH ×2 (13:40→20:28)
[2022-04-10 14:00] VITALS: BP 112/62
[2022-04-10 22:00] VITALS: BP 100/55
[2022-04-10] MEDS: ACETAMINOPHEN 325 MG TAB PO PRN (22:04)
[2022-04-10] MEDS: SIMVASTATIN 40 MG TAB PO SCH (22:04)
[2022-04-11] MEDS ORDERED: ACETAMINOPHEN 325 MG TAB PO PRN (02:30)
[2022-04-11] MEDS ORDERED: oxyCODONE 5MG TAB PO ONE (03:00)
[2022-04-11 05:00] VITALS: BP 123/60
[2022-04-11] MEDS ORDERED: RISATAB3 PO (07:48)
[2022-04-11] MEDS: TIOTROPIUM INHALER/CAPSULE (SPIRIVA) INH SCH (07:56)
[2022-04-11] MEDS: LEVALBUTEROL HFA 45MCG/ACT 15 GM INHALER INH SCH ×2 (07:56→14:00)
[2022-04-11] MEDS: ADVAIR HFA 115/21MCG INHALER INH SCH (07:56)
[2022-04-11 08:00] LABS: HEMATOCRIT 26.8 % (36.0-47.0); HEMOGLOBIN 8.4 g/dl (12.0-15.5); MEAN CORPUSCULAR HEMOGLOBIN 27.6 pg (27.0-33.0); MEAN CORPUSCULAR HGB CONC 31.3 g/dl (32.0-36.5); MEAN CORPUSCULAR VOLUME 88.2 fl (80.0-96.0); RED BLOOD COUNT 3.04 10^6/uL (4.00-5.40); WHITE BLOOD COUNT 4.9 10^3/uL (4.0-10.0)
[2022-04-11 08:08] LABS: PLATELET COUNT, AUTOMATED 36 10^3/uL (150-450)
[2022-04-11] MEDS: PANTOPRAZOLE 40MG TAB (PROTONIX) PO SCH (08:19)
[2022-04-11] MEDS: ESCITALOPRAM OXALATE 10 MG TAB (LEXAPRO) PO SCH (08:19)
[2022-04-11] MEDS: LACTOBACILLUS ACIDOPHILUS CAP (BACID) PO SCH (08:19)
[2022-04-11] MEDS: VANCOMYCIN HCL 750 MG, VIAL MATE ADAPTER 1 EACH in D5W 250 ML IV SCH (08:20)
[2022-04-11] MEDS: SODIUM CHLORIDE 0.9% INJ 10 ML SYR IV SCH (08:20)
[2022-04-11] MEDS: oxyCODONE 5MG TAB PO PRN ×2 (08:22→14:30)
[2022-04-11 08:36] LABS: CALCIUM LEVEL 8.7 MG/DL (8.8-10.2); CREATININE FOR GFR 1.13 MG/DL (0.55-1.30); GLOMERULAR FILTRATION RATE 52.1 (>45); VANCOMYCIN LEVEL TROUGH 22.1 UG/ML (10.0-20.0)
[2022-04-11] MEDS ORDERED: VANCOMYCIN INTERMITTENT/PULSE DOSING BY CLINICAL PHARMACIST PER DOSING PROTOCOL XX SCH (09:00)
[2022-04-11 09:12] LABS: LYMPHOCYTES 3 % (16-44); METAMYELOCYTES 1 % (0-0); MONOCYTES 7 % (0-5); MYELOCYTES 1 % (0-0); NEUTROPHILS 72 % (28-66); NUCLEATED RED BLOOD CELL 2 % (0-0); PROMYELOCYTES 2 % (0-0)
[2022-04-11 09:13] LABS: ANISOCYTOSIS 2+
[2022-04-11 09:14] LABS: HYPOCHROMASIA 2+; PLATELET ESTIMATE DECREASED (NORMAL)
[2022-04-11] MEDS ORDERED: POTASSIUM CHLORIDE 10MEQ SR TABLET PO ONE (10:00)
[2022-04-11] MEDS: LIDOCAINE VISCOUS 2% SOLN 15ML UDC PO SCH (10:20)
[2022-04-11] MEDS: FILGRASTIM 300 MCG/0.5 ML SYRINGE **SC ADMINISTRATION ONLY SC SCH (10:20)
[2022-04-11 10:32] LABS: MAGNESIUM LEVEL 1.5 MG/DL (1.8-2.4)
[2022-04-11] MEDS ORDERED: FLUBLOK(EGG FREE)(QUAD)INFLUENZA VACC 0.5ML SYRINGE 18YRS & OLDER IM.IMMUN ONE (13:30)
[2022-04-11 14:00] VITALS: BP 110/58
[2022-04-12] MEDS ORDERED: OXYC-517 PO (14:46)
== END 2022-04-11 16:43 | disposition home health service (06) | DRG 871 ==
LOC: M ED 16:24 → M ED INP 16:25 → INTOOBSV 16:25 → M ED INP 19:19 → UNDOADMIN 19:19 → M ED INP 03-31 13:58 → M MSPAV 03-31 13:58 → OBSVTOIN 03-31 16:33
PROVIDERS: ADMIT Internal Medicine; ATTEND Internal Medicine
DX: A41.89 Other specified sepsis (principal); J12.82 Pneumonia due to coronavirus disease 2019; U07.1 COVID-19; D61.810 Antineoplastic chemotherapy induced pancytopenia; J96.01 Acute respiratory failure with hypoxia; N39.0 Urinary tract infection, site not specified; C21.1 Malignant neoplasm of anal canal; E87.20 Acidosis, unspecified; D61.818 Other pancytopenia; D84.9 Immunodeficiency, unspecified; F25.9 Schizoaffective disorder, unspecified; R65.20 Severe sepsis without septic shock; K21.9 Gastro-esophageal reflux disease without esophagitis; J44.9 Chronic obstructive pulmonary disease, unspecified; E87.6 Hypokalemia; Z92.21 Personal history of antineoplastic chemotherapy; Z92.3 Personal history of irradiation; L59.8 Other specified disorders of the skin and subcutaneous tissue related to radiation; K12.31 Oral mucositis (ulcerative) due to antineoplastic therapy; F41.9 Anxiety disorder, unspecified; F32.A Depression, unspecified; K59.00 Constipation, unspecified; D70.9 Neutropenia, unspecified; Z88.8 Allergy status to other drugs, medicaments and biological substances; Z79.899 Other long term (current) drug therapy; Z87.891 Personal history of nicotine dependence

== ENCOUNTER 2022-04-20 14:18 | Outpatient (RCR) | payer MEDICARE ==
[~2022-04-20 14:18] MED LIST changes: +ALBU8.5H PO; +DOK100TA2 PO; +FISH100015 PO; +RISATAB3 PO
[2022-05-03] MEDS ORDERED: OXYC-517 PO (13:58)
[2022-05-03] MEDS ORDERED: LIDO5CRE6 TOP (13:58)
[2022-05-15] MEDS ORDERED: OMEP1CAP73 PO (16:00)
[2022-05-15] MEDS ORDERED: POTA-151 PO (17:00)
== END 2022-05-07 ==
LOC: M ONCR 14:18
PROVIDERS: ATTEND General Practice
DX: C21.0 Malignant neoplasm of anus, unspecified (principal)

== ENCOUNTER → 2022-04-23 | Outpatient (CLI) | payer MEDICARE ==
[~2022-04-23] MED LIST changes: -FISH100015 PO; +ISOVUE-370 76% 100ML VIAL As Ordered ONE; +[UNRECOGNIZED DRUG - CODE] PO
== END ==
LOC: M RAD 08:43
PROVIDERS: ATTEND Internal Medicine
DX: R91.8 Other nonspecific abnormal finding of lung field (principal); I51.7 Cardiomegaly; I70.0 Atherosclerosis of aorta; I25.10 Atherosclerotic heart disease of native coronary artery without angina pectoris; K76.0 Fatty (change of) liver, not elsewhere classified; K44.9 Diaphragmatic hernia without obstruction or gangrene; D17.4 Benign lipomatous neoplasm of intrathoracic organs; J43.9 Emphysema, unspecified; J90 Pleural effusion, not elsewhere classified
CPT/HCPCS: 71260; Q9967

== ENCOUNTER → 2022-05-03 | Outpatient (CLI) | payer MEDICARE ==
[~2022-05-03] MED LIST changes: +FISH100015 PO; -ISOVUE-370 76% 100ML VIAL As Ordered ONE; +OMEP1CAP73 PO; -[UNRECOGNIZED DRUG - CODE] PO
== END ==
LOC: M ONCR 13:02
PROVIDERS: ATTEND General Practice
DX: C21.0 Malignant neoplasm of anus, unspecified (principal); Z92.3 Personal history of irradiation; Z92.21 Personal history of antineoplastic chemotherapy

== ENCOUNTER → 2022-05-28 | Outpatient (CLI) | payer MEDICARE | LOC: M WHC 10:30 | PROVIDERS: ATTEND Physician Assistant | DX: R92.8 Other abnormal and inconclusive findings on diagnostic imaging of breast (principal); N60.11 Diffuse cystic mastopathy of right breast ==

== ENCOUNTER → 2022-06-12 | Outpatient (POV) | payer MEDICARE ==
[~2022-06-12] VITALS: Ht 170.2 cm; Wt 72.7 kg
[2022-06-12 14:20] VITALS: BP 126/70
== END ==
LOC: M IRPOV 14:09
PROVIDERS: ATTEND Radiology Diagnostic Radiology
DX: Z45.2 Encounter for adjustment and management of vascular access device (principal); Z88.1 Allergy status to other antibiotic agents

== ENCOUNTER → 2022-07-12 | Outpatient (CLI) | payer MEDICARE | LOC: M LABSMTC 11:33 | PROVIDERS: ATTEND Anesthesiology | DX: Z01.812 Encounter for preprocedural laboratory examination (principal); Z20.822 Contact with and (suspected) exposure to COVID-19 ==

== ENCOUNTER → 2022-07-16 | Outpatient (CLI) | payer MEDICARE ==
[~2022-07-16] MED LIST changes: +LIDOCAINE 1% MDV 20ML VIAL As Ordered ONE; +MIDAZOLAM INJ 2MG/2ML VIAL As Ordered ONE; +NS 1,000 ML IV SCH; +ceFAZolin 2 GM/D5W 50 ML IV BAG As Ordered ONE; +ceFAZolin SOD 2 GM in IV 1 EA IV ONE; +fentaNYL 100 MCG/2 ML INJECTION As Ordered ONE
[2022-07-16 15:45] VITALS: BP 127/63
== END ==
LOC: M IRPRO 11:37
PROVIDERS: ATTEND Radiology Diagnostic Radiology
DX: Z45.2 Encounter for adjustment and management of vascular access device (principal); C21.0 Malignant neoplasm of anus, unspecified

== ENCOUNTER → 2022-08-03 | Outpatient (CLI) | payer MEDICARE ==
[~2022-08-03] MED LIST changes: +COLA100C5 PO; -LIDOCAINE 1% MDV 20ML VIAL As Ordered ONE; -MIDAZOLAM INJ 2MG/2ML VIAL As Ordered ONE; -NS 1,000 ML IV SCH; +PRIM50TA6; -ceFAZolin 2 GM/D5W 50 ML IV BAG As Ordered ONE; -ceFAZolin SOD 2 GM in IV 1 EA IV ONE; -fentaNYL 100 MCG/2 ML INJECTION As Ordered ONE
== END ==
LOC: M ONCR 13:43
PROVIDERS: ATTEND General Practice
DX: C21.0 Malignant neoplasm of anus, unspecified (principal); K58.1 Irritable bowel syndrome with constipation; K64.9 Unspecified hemorrhoids; Z79.51 Long term (current) use of inhaled steroids; Z79.899 Other long term (current) drug therapy; Z87.891 Personal history of nicotine dependence; Z88.8 Allergy status to other drugs, medicaments and biological substances; Z92.21 Personal history of antineoplastic chemotherapy; Z92.3 Personal history of irradiation